=== PATIENT | female | born 1960 | race Caucasian/White ===

== ENCOUNTER 2019-07-30 14:00 | Outpatient (RCR) | payer OTHER, SELFPAY ==
[2019-02-13 13:22] VITALS: BP 120/78; BP 122/78; RESP 18; O2SAT 93; BMI 19.5
--- NOTE | 2019-02-13 16:05 | PR.IEVALNOTE ---
Current Diagnoses Emphysema, unspecified (02/13/19) Provider Team Visit Care Team Role Provider Type Doctor MD Bernard Non-Staff Specialty: Medical Address: Phone: Fax: Email: Drew Cotton MD Primary Care Provider Non-Staff Specialty: Internal Medicine Address: [address] [place] [address], [address], [place], [address] Email: Kari Jessica Attending Provider Non-Staff Specialty: Internal Medicine Address: [address] [place] [address], [id number] Email: Pulmonary Rehab Initial Evaluation [place] Pulmonary Rehab Inital Assessment Start: 02/13/19 10:20 Freq: Status: Active Protocol: Document 02/13/19 13:22 OREN (Rec: 02/13/19 13:56 OREN [id number]) [place] Exercise Assessment Dx: COPD Comment Pre lung transplant Primary Language 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 No Hearing Ability Normal Visual Impairment No Limitations Visual Difficutly None Body Alignment Posture Good Posture Relaxed Assistive Devices None History of Falling (Immediate or No Previous) Secondary Diagnosis (More Than 2 Medical No Diagnoses) Ambulatory Aid None/bed rest/nurse assist Mental Status Oriented to own ability Comment Patient employed 40 hr/week Comment no current exercise physical deconditioning [place] Vital Signs Pulse Oximetry (91-100 %) 93 Nasal Cannula Yes Oxygen Flow Rate (L/min) 2 Respiratory Rate (12-24 breaths/min) 18 Respiratory Effort Accessory Muscle Use Grunting Labored Labored with Exertion Respiratory Depth Normal Assessment distant breath sounds, clear no wheeze rales or rhonchi Right Arm Blood Pressure (90/60-140/90 mmHg) 120/78 Blood Pressure Method Manual Cuff/Auscultation Blood Pressure Position Sitting Left Arm Blood Pressure (90/60-140/90 mmHg) 122/78 Blood Pressure Method Manual Cuff/Auscultation Blood Pressure Position Sitting TX Six Minute Walk Test Oxygen Delivery Method Nasal Cannula Oxygen Flow Rate (L) (L/min) 2 Respiratory Rate (breaths/min) 16 Pulse Rate (beats/min) 86 O2 Saturation by Pulse Oximetry (%) 93 Pulse Rate (beats/min) 104 Ambulation Distance (feet) 200 O2 Saturation by Pulse Oximetry (%) 91 Pulse Rate (beats/min) 104 Ambulation Distance (feet) 200 O2 Saturation by Pulse Oximetry (%) 91 Pulse Rate (beats/min) 104 Ambulatory Distance (feet) 100 O2 Saturation by Pulse Oximetry (%) 89 Respiratory Rate (breaths/min) 24 Pulse Rate (beats/min) 104 Ambulation Distance (feet) 89 O2 Saturation by Pulse Oximetry (%) 0 Pulse Rate (beats/min) 104 Ambulation Distance (feet) 50 O2 Saturation by Pulse Oximetry (%) 88 PUlse Rate (beats/min) 104 Ambulation Distance (feet) 225 O2 Saturation by Pulse Oximetry (%) 88 Respiratory Rate (breaths/min) 16 Pulse Rate (beats/min) 97 O2 Saturation by Pulse Oximetry (%) 96 Activity Tolerance Poor Adverse Reactions Anxiety Desaturation Increased Shortness of Breath Pale Appearance Distance 775 Galo RPE Scale 13 Oriented to RPE Scale Yes Dyspnea 5 Oriented to Dyspnea Scale Yes TX Exercise Goals Exercise Goals progression of exercise training volume will result from increases in time, intensity, and frequency. 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 Volume/Forced Vital Cap 25 Ratio (FEV1/FVC Ratio) Forced Expiratory Volume in 1 sec. 0.46 19% Diffusing Capacity of the Lung (DLCO) 39 History of Diabetes No Admit Height 160.02 cm Admit Weight 49.895 kg Admit Body Mass Index (BMI) 19.5 Additional Comment discussed weight gain strategies Weight Goal 120-125 Liters Per Minute at Rest 2 Liters per Minute with ADL's 2 Liters per Minute with Sleep 2 Liters per Minute with Exercise 2 High Energy Periods Morning Tolerates Activity Fair Signs and Symptoms Activity Intolerance Dyspnea on Exertion Fatigue on Exertion Daytime Naps No TX Education Pre-Test Score 79% Tobacco Use Former, Quit >6 Months Tobacco Product Used cigarettes Total Years Used 40 Additional Comment smoked 1/2 pack/per Use Yes Type wine Frequency very occasionally Education Topics Breathing Retraining Discussed Education Requirements on Yes Intake TX Psychosocial Initial Assess HADS Score 11 HADS Score 9 Marital Status Additional Comment mother recently passed Referral Needed Yes Referred to Counselling No Additional Comment patient states she doesn't feel she needs that support at this time explained that referral for counseling could be made at anytime Physician Comment Ready for Pulmonary Rehabilitation Cooperative Motivated
[2019-03-22 09:10] VITALS: BMI 18.8
--- NOTE | 2019-03-22 09:28 | PR.REVALNOTE ---
Current Diagnoses Emphysema, unspecified (03/22/19) Visit Care Team Role Provider Type Doctor MD Bernard Non-Staff Specialty: Medical Address: Phone: Fax: Email: Drew Cotton MD Primary Care Provider Non-Staff Specialty: Internal Medicine Address: [facility] [address], [address], [place], [address] Email: Kari Jessica Attending Provider Non-Staff Specialty: Internal Medicine Address: [address] [place], [address] Email: Pulmonary Rehab Re-Evaluation [place] Pulmonary Rehab. Re-Assessment Start: 02/13/19 10:20 Freq: Status: Active Protocol: Document 03/22/19 09:10 OREN (Rec: 03/22/19 09:28 Arnaldo [id number]) [place] Exercise Re-Assessment New Session Number 2-7 Type Nustep,Treadmill,Arm Bike METs (resistance level) 2.10NS, 2.05AB, 1.92TM % Improvement 12% NS Interval Training No Shortness of Breath with Exercise Yes Desaturation with Exercise Yes Toward Target Goals Patient has increased time on treadmill. Able to tolerate 5min before stopping. Pt will continue to focus on tolerating increases in time. 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 Diabetes/Dietitian Waiver Dietitian Consult Patient Discussion Yes Goals Pt will continue focusing on weight gain,Pt will continue to learn tips Hypoxia Re-Assessment Patient is in chronic hypercapnic and hypoxemic respiratory failure facilitating noninvasive ventilation to relieve WOB and prevent hospitalizations [place] Education Re-Assessment Topics Normal Anatomy and Physiology, Chronic Lung Disease,Breathing Retraining,Oxygen: How and Why Goals Pt will Master PLB and Diaphragmatic Breathing,Pt will Master Energy Conserving Techniques,Pt will learn exercise safety,Pt will continue ED topics until completion [place] Psychosocial Re-Assessment Patient in Class Regularly Yes Interventions Pt attending class regularly Referral Needed Yes Referral Counseling Refused Additional Comment patient recognizes probable benefit to counseling but she feels stress from working 40hrs /wk attending pulmonary rehab 2x/wk and frequent appts with [facility] Goals Participate in social and educational discussion, Received emotional support from family/friends
--- NOTE | 2019-05-23 10:48 | PR.REVALNOTE ---
Current Diagnoses Emphysema, unspecified (05/23/19) Visit Care Team Role Provider Type Doctor MD Bernard Non-Staff Specialty: Medical Address: Phone: Fax: Email: Drew Cotton MD Primary Care Provider Non-Staff Specialty: Pulmonology Address: Replaced by [facility] [address], [address], [place], [address] Email: Kari Jessica Attending Provider Non-Staff Specialty: Internal Medicine Address: [address] [place], [address] Email: Pulmonary Rehab Re-Evaluation [place] Pulmonary Rehab. Re-Assessment Start: 02/13/19 10:20 Freq: Status: Active Protocol: Document 03/22/19 09:10 OREN (Rec: 03/22/19 09:28 Arnaldo [id number]) [place] Exercise Re-Assessment New Session Number 2-7 Type Nustep,Treadmill,Arm Bike METs (resistance level) 2.10NS, 2.05AB, 1.92TM % Improvement 12% NS Interval Training No Shortness of Breath with Exercise Yes Desaturation with Exercise Yes Toward Target Goals Patient has increased time on treadmill. Able to tolerate 5min before stopping. Pt will continue to focus on tolerating increases in time. [place] Nutrition Re-Assessment Height 160.02 cm Weight 48.081 kg Current BMI (BMI) 18.8 Progress to Weight Goal No: offered assistance in hospital coordinator referral-declined at this time Attempts to Re-Motivate Toward Goal Yes: provided dietary information designed to increase weight. Diabetes/Dietitian Waiver Dietitian Consult Patient Discussion Yes Goals Pt will continue focusing on weight gain,Pt will continue to learn tips Hypoxia Re-Assessment Patient is in chronic hypercapnic and hypoxemic respiratory failure facilitating noninvasive ventilation to relieve WOB and prevent hospitalizations [place] Education Re-Assessment Topics Normal Anatomy and Physiology, Chronic Lung Disease,Breathing Retraining,Oxygen: How and Why Goals Pt will Master PLB and Diaphragmatic Breathing,Pt will Master Energy Conserving Techniques,Pt will learn exercise safety,Pt will continue ED topics until completion [place] Psychosocial Re-Assessment Patient in Class Regularly Yes Interventions Pt attending class regularly Referral Needed Yes Referral Counseling Refused Additional Comment patient recognizes probable benefit to counseling but she feels stress from working 40hrs /wk attending pulmonary rehab 2x/wk and frequent appts with [facility] Goals Participate in social and educational discussion, Received emotional support from family/friends Document 05/23/19 10:36 OREN (Rec: 05/23/19 10:48 OREN [id number]) [place] Exercise Re-Assessment New Session Number 7-16 Type Nustep,Treadmill,BioDex METs (resistance level) 2.25NS,1.92TM,1.56REX % Improvement 7%NS, n/cTM,4%ROBIN Interval Training No Shortness of Breath with Exercise Yes Desaturation with Exercise No Free Weight Yes: 2# 12r 2s Toward Target Goals primary approach to pretransplant rehabilitation is to optimize and maintain functional status-showing progress [place] Nutrition Re-Assessment Progress to Weight Goal No Attempts to Re-Motivate Toward Goal Yes Diabetes/Dietitian Dietitian Consult Patient Discussion Yes Hypoxia Re-Assessment uses supplemental oxygen as prescribed [place] Education Re-Assessment Topics Normal Anatomy and Physiology, Chronic Lung Disease, Description and Interpretation Medical Tests,Breathing Retraining,Benefits of Exercise,Activities of daily living/Leisure Activities Goals Pt will Master PLB and Diaphragmatic Breathing,Pt will Master Energy Conserving Techniques,Pt will learn exercise safety,Pt will continue ED topics until completion [place] Psychosocial Re-Assessment Patient in Class Regularly Yes Interventions Pt attending class regularly Goals Participate in social and educational discussion, Received emotional support from family/friends 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
--- NOTE | 2019-07-02 16:08 | PR.REVALNOTE ---
Current Diagnoses Emphysema, unspecified (07/02/19) Visit Care Team Role Provider Type Doctor MD Bernard Non-Staff Specialty: Medical Address: Phone: Fax: Email: Drew Cotton MD Primary Care Provider Non-Staff Specialty: Pulmonology Address: [facility] [address], [address], [place], [address] Email: Kari Jessica Attending Provider Non-Staff Specialty: Internal Medicine Address: [address] [place], [address] Email: Pulmonary Rehab Re-Evaluation [place] Pulmonary Rehab. Re-Assessment Start: 02/13/19 10:20 Freq: Status: Active Protocol: Document 03/22/19 09:10 OREN (Rec: 03/22/19 09:28 Arnaldo [id number]) [place] Exercise Re-Assessment New Session Number 2-7 Type Nustep,Treadmill,Arm Bike METs (resistance level) 2.10NS, 2.05AB, 1.92TM % Improvement 12% NS Interval Training No Shortness of Breath with Exercise Yes Desaturation with Exercise Yes Toward Target Goals Patient has increased time on treadmill. Able to tolerate 5min before stopping. Pt will continue to focus on tolerating increases in time. ME Nutrition Re-Assessment Height 160.02 cm Weight 48.081 kg Current BMI (BMI) 18.8 Progress to Weight Goal No: offered assistance in research and insights executive referral-declined at this time Attempts to Re-Motivate Toward Goal Yes: provided dietary information designed to increase weight. Diabetes/Dietitian Waiver Dietitian Consult Patient Discussion Yes Goals Pt will continue focusing on weight gain,Pt will continue to learn tips Hypoxia Re-Assessment Patient is in chronic hypercapnic and hypoxemic respiratory failure facillitating noninvasive ventilation to relieve WOB and prevent hospitalizations [place] Education Re-Assessment Topics Normal Anatomy and Physiology, Chronic Lung Disease,Breathing Retraining,Oxygen: How and Why Goals Pt will Master PLB and Diaphragmatic Breating,Pt will Master Energy Conserving Techniques,Pt will learn exercise safety,Pt will continue ED topics until completion ME Psychosocial Re-Assessment Patient in Class Regularly Yes Interventions Pt attending class regularly Referral Needed Yes Referral Counceling Refused Additional Comment patient recognizes probalble benefit to counseling but she feels stress from working 40hrs /wk attending pulmonary rehab 2x/wk and frequent appts with [facility] Goals Participate in social and educational discussion, Received emotional support from family/friends Document 05/23/19 10:36 OREN (Rec: 05/23/19 10:48 OREN [id number]) [place] Exercise Re-Assessment New Session Number 7-16 Type Nustep,Treadmill,BioDex METs (resistance level) 2.25NS,1.92TM,1.56REX % Improvement 7%NS, n/cTM,4%ROBIN Interval Training No Shortness of Breath with Exercise Yes Desaturation with Exercise No Free Weight Yes: 2# 12r 2s Toward Target Goals promary approach to pretransplant rehabilitation si to optimize and maintain functional status-showing progress ME Nutrition Re-Assessment Progress to Weight Goal No Attempts to Re-Motivate Toward Goal Yes Diabetes/Dietitian Dietitian Consult Patient Discussion Yes Hypoxia Re-Assessment uses supplemental oxygen as prescribed ME Education Re-Assessment Topics Normal Anatomy and Physiology, Chronic Lung Disease, Description and Interpretation Medical Tests,Breathing Retraining,Benefits of Exercise,Activities of daily living/Leisure Activities Goals Pt will Master PLB and Diaphragmatic Breathing,Pt will Master Energy Conserving Techniques,Pt will learn exercise safety,Pt will continue ED topics until completion ME Psychosocial Re-Assessment Patient in Class Regularly Yes Interventions Pt attending class regularly Goals Participate in social and educational discussion, Received emotional support from family/friends 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 She reports feeling much better although greatly deconditioned . She is also very despondent over 2 standby calls for lung transplant and feels she may not be able to last. Patient was asked if she would like to pursue a referral for counseling but deferred at this time
== END 2019-07-30 15:00 ==
LOC: PUL 14:00
PROVIDERS: PCP Internal Medicine; Visit Provider Internal Medicine
DX: J43.9 Emphysema, unspecified (principal)
CPT/HCPCS: G0424